=== PATIENT | male | born 1955 | race Hispanic/Latino ===

== ENCOUNTER 2017-11-14 11:41 | Emergency (ER) | payer BC ==
[2017-11-14 11:43] VITALS: BMI 31.1
[2017-11-14 11:48] VITALS: TEMP 97.4
[2017-11-14] MEDS ORDERED: Morphine 4 mg/ml ISec IVP STA (12:01)
[2017-11-14] MEDS ORDERED: Sodium Chloride 0.9% 1,000 ML IV STA (12:01)
--- NOTE | 2017-11-14 12:04 | ED PDOC ---
Arrival/HPI - General Chief Complaint: Chest Pain Time Seen by Provider: 11/14/17 11:42 Historian: Patient - History of Present Illness Narrative History of Present Illness (Text): 11/14/17 12:01 A 62 year old male, whose past medical history includes tachycardia, ablation 5 years ago, multiple extremity surgeries to bilateral shoulder and knee, right inguinal hernia, and GERD on nexium, brought into the emergency department by family complaining of chest pain since this morning. Patient notes feeling generally unwell after dinner last night, which worsened this morning after having a bite of his breakfast. He notes developing sudden chest pain accompanied by shortness of breath and a numbing sensation to fingers and toes. Patient took Aspirin, with no relief. Patient denies any fever, chills, nausea, vomiting, abdominal pain or any other complaints. Time/Duration: Other (this morning) Symptom Course: Unchanged Context: Home Past Medical History - Provider Review Nursing Documentation Reviewed: Yes - Infectious Disease Hx of Infectious Diseases: None - Cardiac Other/Comment: ablation due to tachycardia - Psychiatric Hx Substance Use: No - Surgical History Other/Comment: shoulders surgery. L knee surgery - Anesthesia Hx Anesthesia Reactions: No Hx Malignant Hyperthermia: No Family/Social History - Physician Review Nursing Documentation Reviewed: Yes Family/Social History: No Known Family HX Smoking Status: Never Smoked Hx Alcohol Use: Yes Frequency of alcohol use: Socially Hx Substance Use: No Allergies/Home Meds Allergies/Adverse Reactions: Allergies No Known Allergies Allergy (Verified 11/14/17 11:43) Home Medications: Home Meds Medication Instructions Recorded Confirmed Meloxicam [Mobic] 1 tab PO 11/14/17 Review of Systems - Physician Review All systems were reviewed & negative as marked: Yes - Review of Systems Constitutional: absent: Fevers, Night Sweats Respiratory: SOB Cardiovascular: Chest Pain Gastrointestinal: absent: Abdominal Pain, Nausea, Vomiting Neurological: Other (numbness to fingers and toes) Physical Exam Vital Signs Reviewed: Yes Vital Signs Temp Pulse Resp BP Pulse Ox 11/14/17 16:09 65 18 134/73 95 11/14/17 12:32 63 15 149/73 100 11/14/17 11:41 97.4 F L 65 18 160/108 H 100 Temperature: Afebrile Blood Pressure: Hypertensive Pulse: Regular Respiratory Rate: Normal Appearance: Positive for: Well-Appearing, Non-Toxic, Comfortable Pain Distress: None Mental Status: Positive for: Alert and Oriented X 3 - Systems Exam Head: Present: Atraumatic, Normocephalic Pupils: Present: PERRL Extroacular Muscles: Present: EOMI Conjunctiva: Present: Normal Mouth: Present: Moist Mucous Membranes Neck: Present: Normal Range of Motion Respiratory/Chest: Present: Clear to Auscultation, Good Air Exchange. No: Respiratory Distress, Accessory Muscle Use Cardiovascular: Present: Regular Rate and Rhythm, Normal S1, S2. No: Murmurs Abdomen: Present: Tenderness (RUQ tenderness to palpation). No: Distention, Peritoneal Signs Back: Present: Normal Inspection Upper Extremity: Present: Normal Inspection. No: Cyanosis, Edema Lower Extremity: Present: Normal Inspection. No: Edema Neurological: Present: GCS=15, CN II-XII Intact, Speech Normal Skin: Present: Warm, Dry, Normal Color. No: Rashes Psychiatric: Present: Alert, Oriented x 3, Normal Insight, Normal Concentration Medical Decision Making ED Course and Treatment: 11/14/17 12:01 Impression: A 62 year old male with chest pain and shortness of breath Plan: -- Abdominal ultrasound -- Chest xray -- EKG -- Labs -- Ativan, Morphine, Zofran and IV fluids -- Reassess and disposition Progress Notes: EKG shows NSR at [address]-segment elevations, normal intervals, normal axis. Interpreted by me. Report Date : 11/14/2017 12:45:33 Procedure: Chest xray Dictator : Geovanny Haley MD IMPRESSION: No active disease. Report Date : 11/14/2017 13:33:23 Procedure: Abdominal ultrasound Dictator : Geovanny Haley MD IMPRESSION: No acute findings related to/accounting for the clinical presentation. Additional benign and/or incidental findings described above. 11/14/17 14:[address] Marcelo, believes patients symptoms are not cardiac related. States to consult Dr. Khoury, if he is in agreement with plan patient can be discharged home and follow up outpatient. 11/14/17 14:[address] Khoury, who recommends a second Troponin at 18:30. States if results are negative patient can be discharged home and follow up outpatient. - Lab Interpretations Lab Results: 11/14/17 12:05 11/14/17 12:05 Lab Results 11/14/17 16:14: Lactate Dehydrogenase 368, Total Creatine Kinase 78, Troponin I < 0.01 11/14/17 12:05: Sodium 140, Potassium 4.0, Chloride 103, Carbon Dioxide 29, Anion Gap 13, BUN 13, Creatinine 0.9, Est GFR ( Amer) > 60, Est GFR (Non- Af Amer) > 60, Random Glucose 100, Calcium 9.2, Total Bilirubin 0.7, AST 34, ALT 53, Alkaline Phosphatase 70, Lactate Dehydrogenase 503, Total Creatine Kinase 103, Troponin I < 0.01, Total Protein 7.2, Albumin 4.2, Globulin 2.9, Albumin/Globulin Ratio 1.4, Lipase 66 11/14/17 12:05: PT 11.9, INR 1.03 11/14/17 12:05: WBC 5.6, RBC 5.47, Hgb 14.6, Hct 43.4, MCV 79.3 L, MCH 26.7, MCHC 33.6, RDW 13.0, Plt Count 172, MPV 10.6, Gran % 75.2 H, Lymph % (Auto) 14.9 L, Bland % (Auto) 8.4 H, Eos % (Auto) 1.3 L, Baso % (Auto) 0.2, Gran # 4.19 , Lymph # (Auto) 0.8 L, Bland # (Auto) 0.5, Eos # (Auto) 0.1, Baso # (Auto) 0.01 I have reviewed the lab results: Yes - RAD Interpretation Radiology Orders: 11/14/17 12:01 CHEST PORTABLE [RAD] Stat ABDOMEN COMPLETE [US] Stat - Medication Orders Current Medication Orders: Discontinued Medications Sodium Chloride (Sodium Chloride 0.9%) 1,000 mls @ 999 mls/hr IV .Q1H1M STA Stop: 11/14/17 13:01 Last Admin: 11/14/17 12:20 Dose: 999 mls/hr eMAR Start Stop Document 11/14/17 12:20 SRE (Rec: 11/14/17 12:22 SRE [id number]) Intravenous Solution Start Date 11/14/17 Start Time 12:22 End Date 11/14/17 End time 13:20 Total Infusion Time 58 Lorazepam (Ativan) 1 mg IVP ONCE ONE PRN Reason: Protocol Stop: 11/14/17 12:02 Last Admin: 11/14/17 12:23 Dose: 1 mg IVP Administration Document 11/14/17 12:23 SRE (Rec: 11/14/17 12:23 SRE [id number]) Charges for Administration # of IVP Administrations 1 Morphine Sulfate (Morphine) 4 mg IVP STAT STA Stop: 11/14/17 12:02 Last Admin: 11/14/17 12:22 Dose: 4 mg MAR Pain Assessment Document 11/14/17 12:22 SRE (Rec: 11/14/17 12:23 SRE [id number]) Pain Reassessment Is this a pain reassessment? Yes Sleep Is patient sleeping during reassessment? No Presence of Pain Presence of Pain Yes Pain Scale Used Pain Scale Used Numeric Location Pain Location Body Site Chest Description Description Intermittent IVP Administration Document 11/14/17 12:22 SRE (Rec: 11/14/17 12:23 SRE [id number]) Charges for Administration # of IVP Administrations 1 Ondansetron HCl (Zofran Inj) 8 mg IVP STAT STA Stop: 11/14/17 12:02 Last Admin: 11/14/17 12:24 Dose: 8 mg IVP Administration Document 11/14/17 12:24 SRE (Rec: 11/14/17 12:24 SRE [id number]) Charges for Administration # of IVP Administrations 1 - Scribe Statement The provider has reviewed the documentation as recorded by the Yomaira Epstein Provider Scribe Attestation: All medical record entries made by the Scribe were at my direction and personally dictated by me. I have reviewed the chart and agree that the record accurately reflects my personal performance of the history, physical exam, medical decision making, and the department course for this patient. I have also personally directed, reviewed, and agree with the discharge instructions and disposition. Disposition/Present on Arrival - Present on Arrival Any Indicators Present on Arrival: No History of DVT/PE: No History of Uncontrolled Diabetes: No Urinary Catheter: No History of Decub. Ulcer: No History Surgical Site Infection Following: None - Disposition Have Diagnosis and Disposition been Completed?: Yes Diagnosis: Atypical chest pain Disposition: HOME/ ROUTINE Disposition Time: 16:58 Patient Plan: Discharge Condition: GOOD Discharge Instructions (ExitCare): Chest Pain (ED) Additional Instructions: Mr Bowles- Sorry that you are not feeling well. Please see Dr. Van tomorrow. Follow up with Dr. Kash Alcala and return to us if worse or any problems. Best- Dr. Chacho Kirby Referrals: Davian LORENZANA,Ej Carlisle MD [Primary Care Provider] - Follow up with primary Forms: [employer] (Croatian)
[2017-11-14 12:23] LABS: BASO # 0.01 K/mm3 (0.0-2.0); BASO % 0.2 % (0.0-3.0); EOS # 0.1 (0.0-0.7); EOS % 1.3 % (1.5-5.0); GRAN # 4.19 (1.4-6.5); GRAN % 75.2 % (50.0-68.0); HEMOGLOBIN 14.6 g/dL (14.0-18.0); LYMPH # 0.8 (1.2-3.4); LYMPH % 14.9 % (22.0-35.0); MEAN CELL VOLUME 79.3 fl (80.0-105.0); MEAN CORPUSCULAR HEMOGLOBIN 26.7 pg (25.0-35.0); MEAN CORPUSCULAR HGB CONC 33.6 g/dl (31.0-37.0); MEAN PLATELET VOLUME 10.6 fl (7.0-11.0); MONO # 0.5 (0.1-0.6); MONO % 8.4 % (1.0-6.0); RBC 5.47 10^6/uL (3.5-6.1); WHITE BLOOD COUNT 5.6 10^3/ul (4.5-11.0)
[2017-11-14 12:32] LABS: ALB/GLOB RATIO 1.4 (1.1-1.8); ALBUMIN 4.2 g/dL (3.0-4.8); ALT/SGPT 53 U/L (7-56); AST/SGOT 34 U/L (17-59); BLOOD UREA NITROGEN 13 mg/dL (7-21); CALCIUM 9.2 mg/dL (8.4-10.5); GFR AFRICAN-AMERICAN > 60; GFR NON-AFRICAN AMERICAN > 60; LIPASE 66 U/L (23-300)
[2017-11-14 12:38] LABS: INR 1.03 (0.93-1.08); PROTHROMBIN TIME 11.9 SECONDS (9.4-12.5)
[2017-11-14 12:42] LABS: TROPONIN I < 0.01 ng/mL
--- NOTE | 2017-11-14 12:46 | RAD ---
HISTORY: chest pain COMPARISON: No prior. FINDINGS: LUNGS: No active pulmonary disease. PLEURA: No significant pleural effusion identified, no pneumothorax apparent. CARDIOVASCULAR: Cardiomegaly. No evidence of acute, significant cardiovascular disease. OSSEOUS STRUCTURES: No significant abnormalities. VISUALIZED UPPER ABDOMEN: Normal. OTHER FINDINGS: None. IMPRESSION: No active disease.
--- NOTE | 2017-11-14 13:34 | US ---
HISTORY: Biliary Colic COMPARISON: None. TECHNIQUE: Sonographic evaluation of the abdomen. FINDINGS: LIVER: Measures 15.2 cm. Hepatopedal blood flow. Fatty infiltration manifest ultrasonographically as increased echogenicity of the liver parenchyma. Well-circumscribed echogenic mass right hepatic lobe 1.6 x 1.5 cm. Findings are consistent with hepatic hemangioma. GALLBLADDER: Unremarkable. No gallstones. COMMON BILE DUCT: Measures 3.2 mm. No stones. No dilatation. PANCREAS: Obscured by overlying bowel gas. Non diagnostic assessment of the pancreas RIGHT KIDNEY: Measures 4.9 x 10.4cm. Normal echogenicity. No calculus, mass, or hydronephrosis. LEFT KIDNEY: Measures 6.5 x 13.9cm. Normal echogenicity. No calculus, mass, or hydronephrosis. SPLEEN: Normal in size and contour. No mass. AORTA: No aneurysmal dilatation. IVC: Unremarkable. OTHER FINDINGS: None. IMPRESSION: No acute findings related to/accounting for the clinical presentation. Additional benign and/or incidental findings described above.
[2017-11-14 16:12] VITALS: BP 134/73; PULSE 65; RESP 18; O2SAT 95
[2017-11-14 16:40] LABS: TROPONIN I < 0.01 ng/mL
--- NOTE | 2017-11-14 22:14 | CARD ---
APPROVED REPORT EKG Measurement Heart [id number] <Conclusion> Normal sinus rhythm Normal ECG
== END 2017-11-14 17:11 | disposition home or self-care (01) ==
LOC: ED 11:41
DX: R07.89 Other chest pain (principal)
CPT/HCPCS: 71045; 76700; 80053; 82550; 83615; 83690; 84484; 85025; 85610; 93005; 96361; 96374; 96375; 99284; J2060; J2270; J2405; J7040